=== PATIENT | female | born 1960 | race Caucasian/White ===

== ENCOUNTER 2016-07-05 19:39 | Inpatient (IN) | payer OTHER ==
[~2016-07-05] VITALS: Ht 170.2 cm; Wt 60.9 kg
[2016-07-05 20:59] LABS: BASOPHIL % 0.4 % (0-2); PLATELET COUNT 254 x10^3mcL (130-400); RED CELL DISTRIBUTION WIDTH 14.4 % (11.5-14.5)
[2016-07-05 21:17] LABS: CALCIUM 9.1 mg/dL (8.5-10.1); CHLORIDE SERUM 105 mmol/L (98-107); CREATININE SERUM 0.8 mg/dL (0.6-1.0); GFR1 > 60 mL/min; GLUCOSE SERUM 113 mg/dL (74-106); POTASSIUM SERUM 3.9 mmol/L (3.5-5.1); SODIUM SERUM 138 mmol/L (136-145)
[2016-07-05 21:23] LABS: ALBUMIN 4.2 g/dL (3.4-5.0); ALKALINE PHOSPHATASE 107 U/L (46-116); ALT/SGPT 20 U/L (14-59); AST/SGOT 20 U/L (15-37); BILIRUBIN TOTAL 0.38 mg/dL (0.20-1.00); C REACTIVE PROTEIN 7.2 mg/dL (<=0.9)
[2016-07-05 21:37] LABS: CK-MB < 0.5 ng/mL (0-3.6); CREATINE KINASE 75 U/L (26-192); FREE T4 0.93 ng/dL (0.76-1.46); FREE THYROXINE INDEX 2.1 ug/dL (1.4-4.5)
[2016-07-05 21:43] LABS: ERYTHROCYTE SED RATE 33 mm/hr (0-30)
[2016-07-05 21:54] LABS: T3 TOTAL 0.93 ng/mL
[2016-07-05 22:36] LABS: microscopic required? YES; urine erythrocyte NEGATIVE (NEGATIVE)
[2016-07-06] MEDS ORDERED: TOPAMAX100 MG PO (00:29)
[2016-07-06] MEDS ORDERED: REQUIP0.5 MG PO (00:29)
[2016-07-06 03:17] VITALS: BP 91/55
[2016-07-06 04:33] VITALS: BP 116/74
[2016-07-06 05:53] VITALS: BP 107/65
[2016-07-06 10:38] VITALS: BP 90/55
[2016-07-06 11:35] VITALS: BP 90/55
== END 2016-07-06 13:33 | disposition home or self-care (01) | DRG 140 ==
LOC: ED 19:39 → DU 07-06 01:19
PROVIDERS: Specialist; ADMIT Internal Medicine
DX: J44.0 Chronic obstructive pulmonary disease with (acute) lower respiratory infection (principal); J96.00 Acute respiratory failure, unspecified whether with hypoxia or hypercapnia; J18.9 Pneumonia, unspecified organism; J44.1 Chronic obstructive pulmonary disease with (acute) exacerbation; F17.210 Nicotine dependence, cigarettes, uncomplicated; N39.0 Urinary tract infection, site not specified; F15.10 Other stimulant abuse, uncomplicated
CPT/HCPCS: 36600; 83880; 84439; J0456; J0696; J1650; J1956; J2920; J2930; J7030; J7613; J7620; Q0092; Q9967